=== PATIENT | female | born 1965 | race Caucasian/White ===

== ENCOUNTER 2017-08-31 08:47 | Day surgery (SDC) | payer BC ==
[2017-08-17 14:23] VITALS: BMI 22.7
[2017-08-31 10:07] VITALS: TEMP 97.8
[2017-08-31] MEDS ORDERED: PROPOFOL 20 ML ONE ×3 (11:52)
[2017-08-31] MEDS ORDERED: fentaNYL CITRATE 250 MCG/5 ML VIAL ONE ×2 (11:52→13:46)
[2017-08-31] MEDS ORDERED: MIDAZOLAM HCL 2 MG/2 ML SINGLE DOSE VIAL ONE (11:53)
[2017-08-31] MEDS ORDERED: DEXAMETHASONE SOD PHOSPHATE 4 MG/1 ML VIAL ONE (12:19)
[2017-08-31] MEDS ORDERED: ceFAZolin SODIUM 1 GM VIAL ONE (12:19)
[2017-08-31] MEDS ORDERED: LIDOCAINE HCL 2% JELLY (5 ML/TUBE) ONE (12:19)
[2017-08-31] MEDS ORDERED: KETOROLAC TROMETHAMINE 30 MG/1 ML VIAL ONE (12:19)
[2017-08-31] MEDS ORDERED: ONDANSETRON 4 MG/2 ML VIAL ONE (12:19)
[2017-08-31] MEDS ORDERED: ePHEDrine SULFATE 50 MG/1 ML AMPULE ONE (12:48)
[2017-08-31] MEDS ORDERED: ONDANSETRON 4 MG/2 ML VIAL IVPUSH PRN (15:24)
[2017-08-31] MEDS ORDERED: PROMETHAZINE HCL 25 MG/1 ML VIAL IVPUSH PRN (15:24)
[2017-08-31] MEDS ORDERED: oxyCODONE HCL 5 MG TABLET PO PRN ×2 (15:24)
--- NOTE | 2017-08-31 15:42 | OP ---
Operative Note - Note: Operative Date: 08/31/17 Pre-Operative Diagnosis: Acquired bilateral breast deformity s/p mastectomy Operation: Bilateral breast implant exchange, Right breast reduction, Left breast fat transfer Surgeon: Roman Silvestre Licensing Specialist: Gio Bustillo Anesthesiologist/GOLF MANAGER: Kush Tubbs Anesthesia: General, MAC Estimated Blood Loss (mls): 50 Fluid Volume Replaced (mls): 1,000 Operative Report Dictated: Yes
--- NOTE | 2017-08-31 15:47 | SURG ---
Surgery Collections Clerk Note Collections Clerk: Gio Bustillo PA-C Date of Service: 08/31/17 Diagnosis: Acquired bilateral breast deformity after previous mastectomy Procedure: Bilateral breast implant exchange, Right breast reduction, Left breast fat injection I was present for the entirety of the operative procedure. For further detail, please refer to operative report. <Gio Bustillo - Last Filed: 08/31/17 15:45> I was present for the entirety of the operative procedure. For further detail, please refer to operative report. <Roman Silvestre - Last Filed: 08/31/17 15:49>
[2017-08-31] MEDS ORDERED: oxyCODONE HCL 5 MG TABLET ONE (16:31)
[2017-08-31 17:25] VITALS: BP 122/74; PULSE 98
--- NOTE | 2017-09-01 10:11 | OP ---
DATE OF OPERATION: 08/31/2017 SURGEON: Chris Silvestre M.D. BEHAVIOR THERAPIST: ERICK Teran PREOPERATIVE DIAGNOSES: 1. Bilateral acquired chest wall deformities, status post bilateral reconstructive procedure for breast cancer and mastectomy. 2. Asymmetry of reconstructed chest wall. 3. Mechanical complication of breast implants. POSTOPERATIVE DIAGNOSES 1. Bilateral acquired chest wall deformities, status post bilateral reconstructive procedure for breast cancer and mastectomy. 2. Asymmetry of reconstructed chest wall. 3. Mechanical complication of breast implants. OPERATIVE INDICATION: This patient has a complex history of breast cancer at an early age of approximately 31 years old and underwent mastectomy many years prior with multiple reconstructive procedures. She presented recently with gross asymmetry of the chest wall and need for change of her reconstructive implant, which was placed in 1998. The risks and benefits of surgical, versus non-surgical alternatives, as well as material complications were described to the patient preoperatively on multiple occasions. She agreed to the planned procedure. OPERATIVE PROCEDURES: 1. Bilateral capsulotomy, removal and replacement of right and left breast implants. 2. Reconstruction of the right breast with other technique. 3. Reconstruction of the left breast with other technique. 4. GalaFLEX mesh support of right reconstructed breast. 5. Reduction mammoplasty, right breast. 6. Replacement of breast implant, left. OPERATIVE PROCEDURE IN DETAIL: The patient was taken to the operating room and after induction of general anesthesia in supine position both her arms were extended and padded. Venodyne boots were placed and the markings, which were made in the standing position for the entire procedures, which were marked for reduction mammoplasty of the right breast, revision of the implants, capsulotomy and placement of implants were discussed, remarked and remeasured with the patient's knowledge. She understood the implications of both the usage of mesh on the right breast and support for both breasts in order to reconstruct her breasts symmetrically. The patient showed a great asymmetry and understood the need for reconstructive procedures. The patient was taken to the operating room and after induction of general anesthesia in supine position, the patient was prepped and draped in the usual fashion and attention was turned to the breasts. All incisions were injected with 1% local lidocaine anesthesia with 1:100,000 epinephrine, especially along the right breast, which required reduction mammoplasty, removal and replacement of the implant and support. Attention was first turned to the right breast. A circumareolar incision was made with the No. 42 nipple areolar cutter and deepithelialized according to the circumareolar incision and SPAIR technique. This was carried down through the skin to the dermis tissue, deepithelializing the tissue and then cauterizing it in the usual fashion. Tacking was then carried out using elbert for the nipple areolar complex for reduction of the overall size and shape and then incisions were made in the lower pole of the breast down through the skin and subcutaneous tissue removing a block of tissue from the lower pole of the breast and a large block of tissue for reduction mammoplasty on the lateral portion of the breast. Dissection was carried through the breast using electrocautery. Multiple cysts and deep firm breast tissue was removed in the upper outer and lower outer quadrants of the right breast preserving the nipple areolar complex in a superior and inferior pole. Hemostasis was meticulously obtained throughout the breast at this point. The capsule from the underlying implant was then opened and the implant removed and sent for pathologic diagnosis. Copious irrigation with triple antibiotic solution was carried out and then GalaFLEX mesh contour 3D material was brought into the wound sterilely, irrigated with triple antibiotics and then sutured to the pectoralis major muscle above and down to the inframammary fold below in order to correct the deformity of the malposition of the implant. At this point, an implant was chosen for the right breast. This is a [employer] [facility] SoftTouch breast implant, style SSX 200 mL volume. This was placed into the subpectoral sub GalaFLEX pocket and then continued to be sutured using 2-0 PDS sutures in interrupted fashion holding the implant into its new anatomic position. Tissue was then surrounded and closed upon itself, closing the pocket itself with 2-0 PDS sutures with multiple layers, approximating the lateral pillar of the breast to the medial side. Multiple advancements were created closing the breast upon itself and then the lower long incision was closed using 3-0 PDS suture on the deep tissue. Attention was then turned back to the left mastectomy scar. The scar was opened along its lateral extension lateral to the nipple areolar complex down through the skin and subcutaneous tissue through the pectoralis major muscle and down to the capsule, opening the capsule, performing capsulotomy and then removing the implant and sending this for pathologic diagnosis. Copious irrigation of the pocket was performed. A superior capsulotomy was performed to accept the new implant. The pocket appeared to be clean without any evidence of masses. At this point, a Natrelle Inspira cohesive breast implant, style SCF 695 mL volume was chosen for the left breast. Both implants had been placed using the Mesa funnel and the funnel was used to place the implant in its new position with a No-Touch technique. Good shape and contour was seen with need for more volume. The pectoralis major and capsule were then closed in a running fashion using 3-0 PDS suture in locking fashion and then incisions were made into the flank area to harvest subcutaneous tissue for reconstructive purposes. The incision was made down through the skin to the subcutaneous tissue, down to the deep muscle area over the rectus muscle, lateral oblique and transversalis fascia along the entire anterior abdomen and flanks. This tissue was prepared, transferred to the back table and then prepared for reconstructive purposes. This tissue was then transferred to the inferior medial superior and lateral fold of the left breast and to the superior medial and central portions of the right breast in order to ascertain symmetry. Once this tissue was transferred, the patient was placed into the sitting position. Good symmetry was seen on both sides. The nipple areolar complex wounds were closed with interrupted suture using 3-0 PDS suture and a circumvertical suture of 3-0 V-Loc. A V-Loc suture was placed on the inframammary incision on the right breast and the left breast sutured using 3-0 PDS on the deep dermis and 4-0 Biosyn in a subcuticular fashion on the skin. Donor sites were closed with interrupted and running sutures on the abdominal wall and all wounds were dressed sterilely with Dermabond, Steri- Strips and a compressive dressing with the Surgi-Bra. She tolerated the procedure well. She was awakened, extubated and transferred to the recovery room in satisfactory condition. CHRIS SILVESTRE M.D. [id number] MTDJono
== END 2017-08-31 17:27 | disposition home or self-care (01) ==
LOC: FASU 08:47
PROVIDERS: ATTEND Plastic Surgery
PROC: 0HPU0JZ Removal of Synthetic Substitute from Left Breast, Open Approach (ICD-10-PCS; 2017-08-31)
PROC: 0HRU0JZ Replacement of Left Breast with Synthetic Substitute, Open Approach (ICD-10-PCS; 2017-08-31)
PROC: 0HRV07Z Replacement of Bilateral Breast with Autologous Tissue Substitute, Open Approach (ICD-10-PCS; principal; 2017-08-31 10:30)
PROC: 0HBT0ZZ Excision of Right Breast, Open Approach (ICD-10-PCS; 2017-08-31 10:30)
PROC: 0HRU0JZ Replacement of Left Breast with Synthetic Substitute, Open Approach (ICD-10-PCS; 2017-08-31 10:30)
DX: M95.4 Acquired deformity of chest and rib (principal); Z85.3 Personal history of malignant neoplasm of breast; Z90.13 Acquired absence of bilateral breasts and nipples; N64.89 Other specified disorders of breast; T85.49XA Other mechanical complication of breast prosthesis and implant, initial encounter; Y83.8 Other surgical procedures as the cause of abnormal reaction of the patient, or of later complication, without mention of misadventure at the time of the procedure; Y92.89 Other specified places as the place of occurrence of the external cause
CPT/HCPCS: 84703

== ENCOUNTER 2018-01-19 09:51 | Day surgery (SDC) | payer BC ==
[2018-01-18 14:17] VITALS: BMI 23.5
[2018-01-19] MEDS ORDERED: MIDAZOLAM HCL 2 MG/2 ML SINGLE DOSE VIAL ONE (12:59)
[2018-01-19] MEDS ORDERED: PROPOFOL 20 ML ONE (12:59)
--- NOTE | 2018-01-19 13:44 | OP ---
Operative Note - Note: Operative Date: 01/19/18 Pre-Operative Diagnosis: Wound right breast Operation: Debridement. Application of acellular dermis 5x5 cm. Dressing change Post-Operative Diagnosis: Same as Pre-op Surgeon: Roman Silvestre Anesthesia: MAC Specimens Removed: none Estimated Blood Loss (mls): 2 Operative Report Dictated: Yes
[2018-01-19] MEDS ORDERED: oxyCODONE HCL 5 MG TABLET PO PRN (14:09)
[2018-01-19] MEDS ORDERED: ONDANSETRON 4 MG/2 ML VIAL IVPUSH PRN (14:09)
[2018-01-19] MEDS ORDERED: LACTATED RINGERS SOLUTION 1,000 ML IV SCH (14:15)
[2018-01-19 14:34] VITALS: PULSE 80; TEMP 98.1
[2018-01-19 15:35] VITALS: BP 118/74
--- NOTE | 2018-01-22 19:37 | OP ---
DATE OF OPERATION: 01/19/2018 SURGEON: Chris Silvestre MD PREOPERATIVE DIAGNOSES: 1. Wound of right reconstructed breast. 2. History of breast cancer. 3. Asymmetry of reconstructed chest wall. POSTOPERATIVE DIAGNOSES: 1. Wound of right reconstructed breast. 2. History of breast cancer. 3. Asymmetry of reconstructed chest wall. OPERATIVE PROCEDURE: 1. Debridement and application of acellular dermal graft to right chest wall wound. 2. Dressing application. OPERATIVE INDICATION: The patient is a young woman who underwent reconstructive surgery many months ago and now presents with an open chest wall wound superior and medial on the breast in the 1 o'clock position at the nipple-areolar complex area. Has been treated conservatively with wound dressings and topical antibiotics, but now presents with a significant deformity and open wound measuring 5 x 5, or 25 sq cm. The risks and benefits of surgical versus nonsurgical alternatives as well as material complications of this debridement and application of acellular material was discussed on multiple occasions and again today in the holding area with the patient. The patient was taken to the operating room and placed in the supine position. OPERATIVE PROCEDURE IN DETAIL: After being taken to the operating room and placed in supine position on the operating table, monitored care anesthesia was induced by the anesthesia department with sedation. The wound itself was seen upon removing the dressing, measuring approximately 25 sq cm, and then under sedation, debridement of the wound with granulation tissue on the surface was carried out over the extent of the open area. This was carried down to bleeding viable tissue. Hemostasis was obtained with compression and then Cytal wound matrix and MicroMatrix 100 mg of fine particulate matter of acellular dermis were placed onto the wound bed itself. Once the powder was made into a paste and applied to the wound itself, this was covered with the wound matrix 2-layer 5 x 5 cm acellular dermal matrix and an Adaptic dressing was placed over this. Multiple fluff dressings were placed on top with a compression dressing with Tegaderm. The patient tolerated the procedure well. She was awakened and transferred to the recovery room in satisfactory condition and tolerated procedure well. CHRIS SILVESTRE M.D. [id number]
== END 2018-01-19 15:10 | disposition home or self-care (01) ==
LOC: FASU 09:51
PROVIDERS: ATTEND Plastic Surgery
PROC: 0HUT0KZ Supplement Right Breast with Nonautologous Tissue Substitute, Open Approach (ICD-10-PCS; 2018-01-19)
PROC: 0HBT0ZZ Excision of Right Breast, Open Approach (ICD-10-PCS; principal; 2018-01-19 13:28)
DX: S21.001A Unspecified open wound of right breast, initial encounter (principal); Z85.3 Personal history of malignant neoplasm of breast; N65.1 Disproportion of reconstructed breast; X58.XXXA Exposure to other specified factors, initial encounter; Y93.9 Activity, unspecified; Y92.9 Unspecified place or not applicable
CPT/HCPCS: 84703; 94760